=== PATIENT | female | born 1955 | race Caucasian/White ===

== ENCOUNTER 2018-04-24 06:09 | Day surgery (SDC) | payer BC ==
[2018-04-22 14:51] VITALS: BMI 22.4
[~2018-04-24 06:09] MED LIST: Cyclopentolate 1% Opth Drop 2 ML BOT FS SCH; Fluorouracil 100 MG, Enoxaparin Sodium 25 MG, EPINEPHrine 0.3 MG in Ophthalmic Irrigati... IVPB SCH; Phenylephrine 2.5% Ophth Soln 5 ML BOT FS SCH
[2018-04-24] MEDS ORDERED: Cyclopentolate 1% Opth Drop 2 ML BOT ONE (06:40)
[2018-04-24] MEDS ORDERED: Phenylephrine 2.5% Ophth Soln 5 ML BOT ONE (06:40)
[2018-04-24] MEDS ORDERED: Lidocaine 2% 10 ML INJ ONE (07:47)
[2018-04-24] MEDS ORDERED: Fentanyl 100 MCG/2 ML VIAL ONE (07:47)
[2018-04-24] MEDS ORDERED: Midazolam HCl 2 mg/2 ml Vial ONE (07:47)
[2018-04-24] MEDS ORDERED: PROPOFOL 20 ML ONE (07:47)
--- NOTE | 2018-04-24 09:37 | OP ---
DATE OF PROCEDURE: 04/24/2018 PREOPERATIVE DIAGNOSIS: Macular hole, left eye. POSTOPERATIVE DIAGNOSIS: Macular hole, left eye. PROCEDURE: Pars plana vitrectomy, internal limiting membrane peel, left eye. SURGEON: Dr. Sid Feliz ANESTHESIA: Local with monitored anesthesia care. COMPLICATIONS: None. PROCEDURE IN DETAIL: The patient was identified in the preoperative holding area. Appropriate conse nt for planned surgical procedure on the left eye had been obtained. The patient was transported to the operative suite. Appropriate cardiopulmonary monitoring was established. Local anesthesia obtai kwaku using retrobulbar and modified Van Lint lid block using 50/50 mixture of 4% lidocaine and 0.75% b upivacaine. The patient was prepped and draped in the usual sterile manner for ophthalmic surgery on the left eye. Lid speculum was placed in the left eye. The 25-gauge trocars were placed in conjunc tiva and sclera supratemporally, inferotemporally, and supranasally. Infusion line was placed infero temporally. Light pipe and vitreous cutter were inserted into the eye. Core vitrectomy was performe d. Posterior hyaloid face was elevated using vacuum suction peeled into the retinal periphery using vitreous cutter. Indocyanine green dye was infused into the posterior pole x1, identifying the inter nal limiting membrane. This was elevated using membrane scraper and peeled across the macula using e nd-gripping forceps. Complete air fluid exchange was performed with 10 minutes being allowed for flu id to drain posteriorly. Indirect ophthalmoscopy was used to examine the retina 360 degrees. No hol es, breaks or tears were identified. Prophylactic laser was placed behind the sclerotomy sites. The n 28% sulfur hexafluoride gas was infused into the eye. Trocars were removed and eye was noted to re tain pressure well. Retrobulbar Kenalog and subconjunctival Ancef were placed. Antibiotic ointment placed, and the eye was patched and shielded. The patient was taken to the postoperative recovery un it in good condition having suffered no immediate perioperative complications. DISCHARGE INSTRUCTIONS: The patient has been instructed to keep patch and shield on, avoid flat on b ack positioning, and follow up in the morning with Dr. Feliz.
[2018-04-24] MEDS ORDERED: PROPOFOL 200 MG/20 ML VIAL ONE (14:58)
[2018-04-24] MEDS ORDERED: Lidocaine 1% PF 5 ML VIAL ONE (14:58)
== END 2018-04-24 09:10 | disposition home or self-care (01) ==
LOC: SDC 06:09
PROVIDERS: ATTEND Ophthalmology Retina Specialist
PROC: 08T53ZZ Resection of Left Vitreous, Percutaneous Approach (ICD-10-PCS; principal; 2018-04-24)
PROC: 08NF3ZZ Release Left Retina, Percutaneous Approach (ICD-10-PCS; principal; 2018-04-24)
DX: H35.342 Macular cyst, hole, or pseudohole, left eye (principal); Z88.0 Allergy status to penicillin; Z79.82 Long term (current) use of aspirin; Z79.899 Other long term (current) drug therapy
CPT/HCPCS: 67025; J0171; J1650; J2001; J2250; J2704; J3010; J9190

== ENCOUNTER 2020-02-22 10:31 | Outpatient (CLI) | payer BC ==
--- NOTE | 2020-02-22 11:13 | RAD ---
TWO VIEW CHEST: HISTORY: Adult medical exam. Cough. History of tobacco use. FINDINGS: Lung [place] are clear. No infiltrate. Heart and mediastinum appear normal. Osseous structures appe ar unremarkable. IMPRESSION: Unremarkable chest. POS: [facility]
== END 2020-02-22 10:32 | disposition home or self-care (01) ==
LOC: BICRAD 10:31
PROVIDERS: ATTEND Family Medicine
DX: Z00.00 Encounter for general adult medical examination without abnormal findings (principal)
CPT/HCPCS: 36415; 71046; 80053; 80061; 81001; 84443; 85025

== ENCOUNTER 2020-08-26 08:44 | Outpatient (CLI) | payer BC | END 2020-08-26 08:45 | disposition home or self-care (01) | LOC: CTENTCT 08:44 | PROVIDERS: ATTEND Student in an Organized Health Care Education/Training Program | DX: J32.9 Chronic sinusitis, unspecified (principal) | CPT/HCPCS: 70486 ==

== ENCOUNTER 2020-10-11 07:24 | Outpatient (CLI) | payer BC ==
--- NOTE | 2020-10-11 09:31 | CT ---
CT ANGIOGRAM OF HEAD: Date: 10/11/2020 COMPARISON: 09/05/2014. HISTORY: Headache when bending over. FINDINGS: NONCONTRAST HEAD CT: Stable encephalomalacia and gliosis involving the right greater than left cerebellar hemisphere. Stab le hypodensities involving both cerebellar hemispheres. Cortical patel-white matter differentiation is preserved with regards to the rest of the cerebrum. No hydrocephalus. Intact calvarium. Adequate aeration of the paranasal sinuses. There is chronic sinus d isease of the right maxillary sinus. POSTCONTRAST HEAD CT: No pathologic enhancement. CT ANGIOGRAM: There is appropriate enhancement and luminal diameter of the cervical carotid and vertebral arteries. Anterior circulation: There is appropriate enhancement and luminal diameter of the A1 segments, M1 s egments, proximal A2 segments, and proximal MCA branches. No evidence of occlusion or aneurysm. Mild atherosclerosis involving both cavernous carotid segments. Posterior circulation; Bilateral PICA artery origins appear to have appropriate enhancement and pratik nal diameter. No aneurysm. Both vertebral arteries supply a normal appearing basilar artery. Appropri ate enhancement and luminal diameter of the P1 segments and the basilar artery. No evidence of an ane urysm or significant occlusion in the posterior circulation. IMPRESSION: No evidence of aneurysm or significant occlusion at the level of the [place]. POS: [facility]
[2020-10-11] MEDS ORDERED: Iopamidol 370 76% 100 ML VIAL ONE (12:51)
== END 2020-10-11 07:25 | disposition home or self-care (01) ==
LOC: BICCT 07:24
PROVIDERS: ATTEND Psychiatry & Neurology Neurology
DX: C64.2 Malignant neoplasm of left kidney, except renal pelvis (principal); G44.1 Vascular headache, not elsewhere classified
CPT/HCPCS: 70496; 82565; Q9967

== ENCOUNTER 2021-05-12 08:30 | Outpatient (CLI) | payer BC | END 2021-05-12 08:31 | disposition home or self-care (01) | LOC: BICMAMMO 08:30 | PROVIDERS: ATTEND Family Medicine | DX: Z12.31 Encounter for screening mammogram for malignant neoplasm of breast (principal) | CPT/HCPCS: 77063; 77067 ==

== ENCOUNTER 2022-05-07 09:35 | Outpatient (CLI) | payer BC | END 2022-05-07 09:36 | disposition home or self-care (01) | LOC: BICRAD 09:35 | PROVIDERS: ATTEND Family Medicine | DX: R05.9 Cough, unspecified (principal) | CPT/HCPCS: 71046 ==

== ENCOUNTER 2022-05-16 09:35 | Outpatient (CLI) | payer BC | END 2022-05-16 09:36 | disposition home or self-care (01) | LOC: BICMAMMO 09:35 | PROVIDERS: ATTEND Family Medicine | DX: Z12.31 Encounter for screening mammogram for malignant neoplasm of breast (principal); Z12.2 Encounter for screening for malignant neoplasm of respiratory organs; F17.210 Nicotine dependence, cigarettes, uncomplicated; J98.4 Other disorders of lung | CPT/HCPCS: 71271; 77063; 77067 ==

== ENCOUNTER 2022-11-15 10:03 | Outpatient (CLI) | payer MEDICARE, BC | END 2022-11-15 10:04 | disposition home or self-care (01) | LOC: BICCT 10:03 | PROVIDERS: ATTEND Family Medicine | DX: Z12.2 Encounter for screening for malignant neoplasm of respiratory organs (principal); F17.210 Nicotine dependence, cigarettes, uncomplicated | CPT/HCPCS: 71271 ==

== ENCOUNTER 2023-07-02 07:41 | Outpatient (CLI) | payer MEDICARE, BC | END 2023-07-02 07:42 | disposition home or self-care (01) | LOC: BICMAMMO 07:41 | PROVIDERS: ATTEND Family Medicine | DX: Z12.31 Encounter for screening mammogram for malignant neoplasm of breast (principal); N63.21 Unspecified lump in the left breast, upper outer quadrant | CPT/HCPCS: 77063; 77067 ==

== ENCOUNTER 2023-07-04 08:15 | Outpatient (CLI) | payer MEDICARE, BC | END 2023-07-04 08:16 | disposition home or self-care (01) | LOC: BICMAMMO 08:15 | PROVIDERS: ATTEND Family Medicine | DX: N63.20 Unspecified lump in the left breast, unspecified quadrant (principal) | CPT/HCPCS: 76642; 77065; G0279 ==

== ENCOUNTER 2023-11-22 08:21 | Outpatient (CLI) | payer MEDICARE, BC | END 2023-11-22 08:22 | disposition home or self-care (01) | LOC: BICCT 08:21 | PROVIDERS: ATTEND Family Medicine | DX: Z12.2 Encounter for screening for malignant neoplasm of respiratory organs (principal); F17.210 Nicotine dependence, cigarettes, uncomplicated | CPT/HCPCS: 71271 ==

== ENCOUNTER 2024-05-14 08:05 | Outpatient (CLI) | payer MEDICARE, BC | END 2024-05-14 08:06 | disposition home or self-care (01) | LOC: BICMAMMO 08:05 | PROVIDERS: ATTEND Family Medicine | DX: R92.8 Other abnormal and inconclusive findings on diagnostic imaging of breast (principal); N64.9 Disorder of breast, unspecified | CPT/HCPCS: 76642; 77066; G0279 ==

== ENCOUNTER 2024-09-22 14:56 | Outpatient (CLI) | payer MEDICARE, BC ==
[~2024-09-22 14:56] MED LIST changes: -Cyclopentolate 1% Opth Drop 2 ML BOT FS SCH; -Fluorouracil 100 MG, Enoxaparin Sodium 25 MG, EPINEPHrine 0.3 MG in Ophthalmic Irrigati... IVPB SCH; +Iopamidol 370 76% 100 ML VIAL ONE; -Phenylephrine 2.5% Ophth Soln 5 ML BOT FS SCH
== END 2024-09-22 14:57 | disposition home or self-care (01) ==
LOC: BICCT 14:56
PROVIDERS: ATTEND Otolaryngology Plastic Surgery within the Head & Neck
DX: R09.82 Postnasal drip (principal); J32.0 Chronic maxillary sinusitis
CPT/HCPCS: 36415; 70491; 82565; Q9967

== ENCOUNTER 2024-11-14 18:41 | Emergency (ER) | payer MEDICARE, BC ==
[2024-11-14] MEDS ORDERED: Ketorolac Tromethamine 30 MG (1 mL) VIAL ONE (20:42)
[2024-11-14] MEDS ORDERED: Ketamine In 0.9 % NaCl 50 MG/5 ML SYRINGE ONE (21:37)
== END 2024-11-14 22:46 | disposition home or self-care (01) ==
LOC: ERS 18:41
DX: S52.572A Other intraarticular fracture of lower end of left radius, initial encounter for closed fracture (principal); S52.602A Unspecified fracture of lower end of left ulna, initial encounter for closed fracture; F17.210 Nicotine dependence, cigarettes, uncomplicated; W01.0XXA Fall on same level from slipping, tripping and stumbling without subsequent striking against object, initial encounter; Y93.54 Activity, bowling
CPT/HCPCS: 25660; 73110; 96374; 99152; 99153; 99283; J1885; J3490

== ENCOUNTER 2024-12-01 09:56 | Outpatient (CLI) | payer MEDICARE, BC ==
[2024-12-01 11:57] LABS: #Basophils 0.06 10x3/uL (0.0-0.2); %Basophils 0.7 % (0.0-1.0); %Eosinophils 1.2 % (0.0-10.0); %Lymphocytes 35.1 % (21.0-51.0); %Monocytes 9.2 % (0.0-10.0); %Neutrophils 53.6 % (42.0-75.0); Hematocrit 39.6 % (36.0-47.0); Hemoglobin 13.5 g/dL (12.0-16.0); Mean Corpuscular HGB CONC 34.1 g/dL (32.0-36.0); Mean Corpuscular Hemoglobin 32.5 pg (27.0-31.0); Mean Corpuscular Volume 95.4 fL (78.0-98.0); Mean Platelet Volume 10.8 fL (7.4-10.4); Platelet Count 211 10x3/uL (130-400); RBC Distribution Width 13.4 % (11.5-14.5); Red Blood Cell (RBC) Count 4.15 mill/uL (4.20-5.40)
[2024-12-01 12:17] LABS: Anion Gap 12 mmol/L (10-20); BUN (Urea Nitrogen) 11 mg/dL (9.8-20.1); Calc. Creatinine Clearance 0 mL/min (70-130); Calcium 9.8 mg/dL (7.8-10.44); Carbon Dioxide 20 mmol/L (23-31); Chloride 111 mmol/L (98-107); Estimated GFR 94; Glucose 103 mg/dL (80-115); Potassium 4.1 mmol/L (3.5-5.1); Sodium 139 mmol/L (136-145)
== END 2024-12-01 09:57 | disposition home or self-care (01) ==
LOC: LABBT 09:56
PROVIDERS: ATTEND Orthopaedic Surgery
DX: Z01.818 Encounter for other preprocedural examination (principal); S52.572A Other intraarticular fracture of lower end of left radius, initial encounter for closed fracture
CPT/HCPCS: 71046; 80048; 85025; 93005; 93010

== ENCOUNTER 2024-12-03 06:00 | Day surgery (SDC) | payer MEDICARE, BC ==
[2024-12-01 10:09] VITALS: BMI 24.6
[2024-12-03] MEDS ORDERED: fentaNYL 50 mcg/mL 1 mL Vial ONE ×2 (06:57→08:07)
[2024-12-03] MEDS ORDERED: Midazolam HCl 2 mg/2 ml Vial ONE (06:58)
[2024-12-03] MEDS ORDERED: Bupivacaine PF 0.5% 30 ML VIAL ONE (07:15)
[2024-12-03] MEDS ORDERED: PROPOFOL 20 ML ONE (07:16)
[2024-12-03] MEDS ORDERED: Lidocaine 1% PF 5 ML VIAL ONE (07:16)
[2024-12-03] MEDS ORDERED: Clindamycin/D5W 600 mg/50 ml Premix Bag ONE (07:23)
[2024-12-03] MEDS ORDERED: PHENYLEPHRINE-NS 100 MCG/ML 10 ML SYRINGE ONE (07:48)
[2024-12-03] MEDS ORDERED: ePHEDrine Sulfate 50 MG/10 ML VIAL ONE (07:51)
[2024-12-03] MEDS ORDERED: Dexamethasone 4 mg/ml Vial ONE (07:59)
[2024-12-03] MEDS ORDERED: Ondansetron PF 4 MG/2 ML Vial ONE (07:59)
[2024-12-03] MEDS ORDERED: Ropivacaine 0.5% HCl/PF (150 MG/30 ML VIAL) ONE (08:41)
[2024-12-03] MEDS ORDERED: Ropivacaine 0.2% HCl/PF 20 ML ONE (08:41)
== END 2024-12-03 10:53 | disposition home or self-care (01) ==
LOC: SDC 06:00
PROVIDERS: ATTEND Orthopaedic Surgery
PROC: 0PSJ04Z Reposition Left Radius with Internal Fixation Device, Open Approach (ICD-10-PCS; principal; 2024-12-03)
PROC: 3E0T3BZ Introduction of Anesthetic Agent into Peripheral Nerves and Plexi, Percutaneous Approach (ICD-10-PCS; 2024-12-03)
DX: S52.572A Other intraarticular fracture of lower end of left radius, initial encounter for closed fracture (principal); F17.200 Nicotine dependence, unspecified, uncomplicated; I10 Essential (primary) hypertension; I25.10 Atherosclerotic heart disease of native coronary artery without angina pectoris; E78.5 Hyperlipidemia, unspecified; Z98.890 Other specified postprocedural states; Z79.82 Long term (current) use of aspirin; Z79.899 Other long term (current) drug therapy; Z90.710 Acquired absence of both cervix and uterus; Z88.0 Allergy status to penicillin; W18.30XA Fall on same level, unspecified, initial encounter
CPT/HCPCS: 25609; 64415; 73110; C1713 ×6; J1100; J2405; J2704; J2795 ×2; J3010; J3490; J0665; J2250